=== PATIENT | male | born 1960 | race Caucasian/White ===

== ENCOUNTER 2017-02-01 15:10 | Emergency (ER) | payer MEDICARE, OTHER ==
[~2017-02-01] VITALS: Ht 172.7 cm; Wt 59.0 kg
--- NOTE | 2017-02-01 15:14 | NUR ---
BIB SELF C/O S/P TRIP AND FALL ~ 2-3 WEEKS AGO. C/O RIGHT KNEE PAIN. NAD NOTED, VSS, WAITING FOR MD SHAH
[2017-02-01 16:39] VITALS: BP 135/80
== END 2017-02-01 16:42 | disposition home or self-care (01) ==
LOC: ER 15:13
DX: S83.91XA Sprain of unspecified site of right knee, initial encounter (principal); S80.01XA Contusion of right knee, initial encounter; M19.90 Unspecified osteoarthritis, unspecified site; Z88.0 Allergy status to penicillin; F15.10 Other stimulant abuse, uncomplicated; W01.0XXA Fall on same level from slipping, tripping and stumbling without subsequent striking against object, initial encounter; Y93.89 Activity, other specified; Y92.89 Other specified places as the place of occurrence of the external cause; Y99.8 Other external cause status
CPT/HCPCS: 29505; 73564; 99284; A4606; Z7610